=== PATIENT | female | born 1985 | race Caucasian/White ===

== ENCOUNTER → 2020-07-27 | Outpatient (CLI) | payer BC ==
[~2020-07-27] MED LIST: CHOL100046 PO; LABE100T5 PO; PREN-118 PO
[2020-07-27 13:35] LABS: BASOPHILS % 0.2 % (0.0-2.0); EOSINOPHILS % 0.3 % (0.0-5.0); HEMATOCRIT. 33.2 % (36.0-48.0); HEMOGLOBIN. 11.2 g/dL (12.0-16.0); LYMPHOCYTES % 23.3 % (20.0-50.0); MEAN CORPUSCULAR HEMOGLOBIN 30.9 pg (28.0-32.0); MEAN CORPUSCULAR VOLUME 91.5 fL (81.0-99.0); MEAN PLATELET VOLUME 8.1 fl (7.4-10.4); MONOCYTES % 5.7 % (2.0-8.0); NEUTROPHILS % 70.5 % (40.0-76.0); PLATELET 304 x1000/uL (130-400); RED BLOOD CELL COUNT 3.62 mill/uL (4.2-5.4); RED CELL DISTRIBUTION WIDTH 13.5 % (11.6-14.6)
[2020-07-27 13:39] LABS: CHLORIDE 106 mEq/L (98-107); INR 0.9; PARTIAL THROMBOPLASTIN TIME 25.3 sec (23.4-31.0); PROTHROMBIN TIME 10.2 sec (9.6-11.0)
[2020-07-27 13:58] LABS: T4 FREE 1.03 ng/dL (0.76-1.46)
== END | disposition home or self-care (01) ==
LOC: LAB 12:32
PROVIDERS: ATTEND Obstetrics & Gynecology Obstetrics
DX: Z01.812 Encounter for preprocedural laboratory examination (principal)
CPT/HCPCS: 36415; 80053; 83036; 84439; 84443; 84481; 85025; 87426

== ENCOUNTER → 2020-08-23 | Outpatient (CLI) | payer BC | END | disposition home or self-care (01) | LOC: LAB 10:22 | PROVIDERS: ATTEND Obstetrics & Gynecology Obstetrics | DX: Z13.1 Encounter for screening for diabetes mellitus (principal) | CPT/HCPCS: 36415; 82947; 82950 ==

== ENCOUNTER 2020-10-19 21:17 | Observation (INO) | payer BC ==
[~2020-10-19] VITALS: Ht 160 cm; Wt 94.8 kg
== END 2020-10-19 23:10 | disposition home or self-care (01) ==
LOC: 8 EST LDRP 21:17
PROVIDERS: ADMIT Obstetrics & Gynecology Obstetrics; ATTEND Obstetrics & Gynecology Obstetrics
DX: O26.893 Other specified pregnancy related conditions, third trimester (principal); R10.9 Unspecified abdominal pain; Z3A.32 32 weeks gestation of pregnancy
CPT/HCPCS: G0378

== ENCOUNTER 2020-11-29 08:28 | Inpatient (IN) | payer BC ==
[~2020-11-29] VITALS: Ht 160 cm; Wt 98.4 kg
[2020-11-29] MEDS ORDERED: DEXT 5%/LR + PITOCIN 20UNITS/L 1,000 ML IV ONE (09:21)
[2020-11-29] MEDS ORDERED: BUTORPHANOL TARTRATE 2 MG/ML VIAL IV PRN (09:30)
[2020-11-29] MEDS ORDERED: LIDOCAINE HCL 1% 20ML VIAL (Pyxis) INJ INFIL SCH (09:30)
[2020-11-29] MEDS ORDERED: AMPICILLIN 2GM in NS 100ML 100 ML IV SCH (09:30)
[2020-11-29] MEDS ORDERED: LACTATED RINGERS 1,000 ML IV SCH ×2 (09:30→17:30)
[2020-11-29] MEDS ORDERED: DEXT 5%/LR + PITOCIN 20UNITS/L 1,000 ML IV SCH ×2 (09:30→13:00)
[2020-11-29] MEDS ORDERED: MINERAL OIL 30ML BOTTLE PO NR (09:45)
[2020-11-29 09:48] LABS: BASOPHILS % 0.2 % (0.0-2.0); EOSINOPHILS % 0.2 % (0.0-5.0); HEMATOCRIT. 36.6 % (36.0-48.0); HEMOGLOBIN. 12.1 g/dL (12.0-16.0); LYMPHOCYTES % 20.4 % (20.0-50.0); MEAN CORPUSCULAR HEMOGLOBIN 30.9 pg (28.0-32.0); MEAN CORPUSCULAR VOLUME 93.6 fL (81.0-99.0); MEAN PLATELET VOLUME 8.6 fl (7.4-10.4); MONOCYTES % 5.3 % (2.0-8.0); NEUTROPHILS % 73.9 % (40.0-76.0); PLATELET 248 x1000/uL (130-400); RED BLOOD CELL COUNT 3.91 mill/uL (4.2-5.4); RED CELL DISTRIBUTION WIDTH 16.3 % (11.6-14.6)
[2020-11-29 09:50] LABS: CLARITY URINE CLEAR (CLEAR); COLOR URINE YELLOW (YELLOW); KETONES URINE TRACE (NEGATIVE); LEUKOCYTE ESTERASE URINE NEGATIVE (NEGATIVE); NITRITE URINE NEGATIVE (NEGATIVE); OCCULT BLOOD URINE 1+ (NEGATIVE); PROTEIN URINE NEGATIVE (NEGATIVE); SPECIFIC GRAVITY URINE 1.015 (1.005-1.030)
[2020-11-29 09:53] LABS: CHLORIDE 113 mEq/L (98-107)
[2020-11-29 10:01] LABS: INR 0.9; PARTIAL THROMBOPLASTIN TIME 27.3 sec (23.4-31.0); PROTHROMBIN TIME 9.9 sec (9.6-11.0)
[2020-11-29 10:23] LABS: *BARBITURATES SCREEN URINE NEGATIVE (NEGATIVE); PHENCYCLIDINE URINE SCREEN NEGATIVE (NEGATIVE)
[2020-11-29 10:24] LABS: *AMPHETAMINES SCREEN URINE NEGATIVE (NEGATIVE); *BENZODIAZEPINES SCREEN URINE NEGATIVE (NEGATIVE); *COCAINE SCREEN URINE NEGATIVE (NEGATIVE); CANNABINOID URINE SCREEN NEGATIVE (NEGATIVE); METHADONE URINE SCREEN NEGATIVE (NEGATIVE); OPIATES URINE SCREEN NEGATIVE (NEGATIVE)
[2020-11-29 11:45] LABS: HEPATITIS B SURFACE ANTIGEN NEGATIVE
[2020-11-29 13:00] VITALS: BP 107/64
[2020-11-29] MEDS ORDERED: LANOLIN OINT 7GM TUBE TOP PRN (13:00)
[2020-11-29] MEDS ORDERED: BENZOCAINE/LANOLIN/ALOE VERA SPRAY TOP PRN (13:00)
[2020-11-29] MEDS ORDERED: HEMORRHOIDAL SUPP PR PRN (13:00)
[2020-11-29] MEDS ORDERED: IBUPROFEN 400MG TABLET PO PRN (13:00)
[2020-11-29] MEDS ORDERED: RHO(D) IMMUNE GLOBULIN 300 MCG/SYR IM PRN (13:00)
[2020-11-29] MEDS ORDERED: DIPHENHYDRAMINE 25MG CAPSULE PO PRN (13:00)
[2020-11-29] MEDS ORDERED: GLYCERIN/WITCH HAZEL LEAF MEDICATED PAD TOP PRN (13:00)
[2020-11-29] MEDS ORDERED: ACETAMINOPHEN 500MG TABLET PO PRN (13:45)
[2020-11-29] MEDS ORDERED: ACETAMINOPHEN WITH CODEINE 300/30MG TABLET PO PRN (13:45)
[2020-11-29] MEDS: IBUPROFEN 800MG TABLET PO PRN ×2 (15:08→21:29)
[2020-11-29 17:34] VITALS: BP 98/60
[2020-11-29 19:30] VITALS: BP 105/58
[2020-11-29] MEDS ORDERED: LABETALOL HCL 200MG TABLET PO SCH (21:00)
[2020-11-29] MEDS: DOCUSATE SODIUM 100MG CAPSULE PO SCH (21:25)
[2020-11-30 04:30] VITALS: BP 96/55
[2020-11-30 07:30] VITALS: BP 102/56
[2020-11-30 07:33] LABS: HEMATOCRIT 31.6 % (36.0-48.0); HEMOGLOBIN 10.5 g/dL (12.0-16.0)
[2020-11-30] MEDS: PRENATAL VIT/FE FUMARATE/FA TABLET PO SCH (09:37)
[2020-11-30] MEDS: IBUPROFEN 800MG TABLET PO PRN ×2 (11:30→20:49)
[2020-11-30 16:27] VITALS: BP 106/58
[2020-11-30] MEDS ORDERED: TETANUS, DIPHTHERIA, PERTUSSIS VAC/PF 0.5ML (>7YR OLD) IM ONE (18:00)
[2020-11-30] MEDS: DOCUSATE SODIUM 100MG CAPSULE PO SCH (20:50)
[2020-11-30 21:50] VITALS: BP 111/74
[2020-12-01 06:39] VITALS: BP 106/64
[2020-12-01 08:00] VITALS: BP 120/75
[2020-12-01] MEDS: PRENATAL VIT/FE FUMARATE/FA TABLET PO SCH (08:56)
[2020-12-01] MEDS: IBUPROFEN 800MG TABLET PO PRN (08:57)
== END 2020-12-01 12:30 | disposition home or self-care (01) | DRG 807 ==
LOC: 8 EST LDRP 08:28 → OBSVTOIN 08:28 → 8EST 12:48
PROVIDERS: ADMIT Obstetrics & Gynecology Obstetrics; ATTEND Obstetrics & Gynecology Obstetrics
PROC: 10E0XZZ Delivery of Products of Conception, External Approach (ICD-10-PCS; principal; 2020-11-29)
PROC: 0KQM0ZZ Repair Perineum Muscle, Open Approach (ICD-10-PCS; 2020-11-29)
PROC: 10907ZC Drainage of Amniotic Fluid, Therapeutic from Products of Conception, Via Natural or Artificial Opening (ICD-10-PCS; 2020-11-29)
DX: O16.4 Unspecified maternal hypertension, complicating childbirth (principal); Z37.0 Single live birth; O70.1 Second degree perineal laceration during delivery; Z3A.38 38 weeks gestation of pregnancy
CPT/HCPCS: 36415; 80053; 80305; 81003; 84550; 85014; 85018; 85025; 85384; 86592; 86703; 86762; 86850; 86900; 87340; 90715; 99281; J0290; J0595; J2590; J7120

== ENCOUNTER → 2020-12-05 | Outpatient (CLI) | payer BC ==
[2020-12-05 12:43] LABS: BASOPHILS % 0.3 % (0.0-2.0); EOSINOPHILS % 0.8 % (0.0-5.0); HEMATOCRIT. 33.3 % (36.0-48.0); HEMOGLOBIN. 11.2 g/dL (12.0-16.0); LYMPHOCYTES % 24.8 % (20.0-50.0); MEAN CORPUSCULAR HEMOGLOBIN 30.6 pg (28.0-32.0); MEAN CORPUSCULAR VOLUME 90.7 fL (81.0-99.0); MONOCYTES % 8.1 % (2.0-8.0); PLATELET 318 x1000/uL (130-400); RED BLOOD CELL COUNT 3.67 mill/uL (4.2-5.4); RED CELL DISTRIBUTION WIDTH 15.6 % (11.6-14.6)
[2020-12-05 12:47] LABS: CLARITY URINE CLEAR (CLEAR); COLOR URINE YELLOW (YELLOW); KETONES URINE NEGATIVE (NEGATIVE); LEUKOCYTE ESTERASE URINE 2+ (NEGATIVE); NITRITE URINE NEGATIVE (NEGATIVE); OCCULT BLOOD URINE 3+ (NEGATIVE); PROTEIN URINE NEGATIVE (NEGATIVE); SPECIFIC GRAVITY URINE 1.009 (1.005-1.030)
[2020-12-05 13:06] LABS: D-DIMER 2.72 mg/L FEU (<0.50); PARTIAL THROMBOPLASTIN TIME 27.4 sec (23.4-31.0); PROTHROMBIN TIME 10.3 sec (9.6-11.0)
[2020-12-05 13:20] LABS: CHLORIDE 113 mEq/L (98-107)
[2020-12-06 07:12] LABS: *CREATININE RANDOM URINE 34.4 mg/dL (Not Estab.); MICROALBUMIN RANDOM URINE 14.2 ug/mL (Not Estab.)
== END | disposition home or self-care (01) ==
LOC: LAB 11:15
PROVIDERS: ATTEND Obstetrics & Gynecology Obstetrics
DX: N39.0 Urinary tract infection, site not specified (principal); I10 Essential (primary) hypertension; R42 Dizziness and giddiness; R51.9 Headache, unspecified; D68.9 Coagulation defect, unspecified; O24.419 Gestational diabetes mellitus in pregnancy, unspecified control
CPT/HCPCS: 36415; 80053; 80076; 81003; 82043; 82248; 82570; 83036; 85025; 85379; 85384

== ENCOUNTER → 2023-06-11 | Outpatient (CLI) | payer BC | END | disposition home or self-care (01) | LOC: US 13:01 | PROVIDERS: ATTEND Obstetrics & Gynecology Obstetrics | DX: Z97.5 Presence of (intrauterine) contraceptive device (principal) | CPT/HCPCS: 76830; 76856 ==

== ENCOUNTER → 2023-07-01 | Outpatient (CLI) | payer BC ==
[2023-07-01 12:03] LABS: CLARITY URINE CLEAR (CLEAR); COLOR URINE YELLOW (YELLOW); GLUCOSE URINE NEGATIVE (NEGATIVE); KETONES URINE NEGATIVE (NEGATIVE); LEUKOCYTE ESTERASE URINE TRACE (NEGATIVE); NITRITE URINE NEGATIVE (NEGATIVE); OCCULT BLOOD URINE TRACE (NEGATIVE); PH URINE 6.5 (4.5-8.0); PROTEIN URINE NEGATIVE (NEGATIVE); SPECIFIC GRAVITY URINE 1.011 (1.005-1.030); UROBILINOGEN URINE 0.2 E.U./dL (0.2-1.0)
[2023-07-01 12:07] LABS: BASOPHILS % 0.4 % (0.0-2.0); EOSINOPHILS % 0.6 % (0.0-5.0); HEMATOCRIT. 39.7 % (36.0-48.0); HEMOGLOBIN. 13.3 g/dL (12.0-16.0); MEAN CORPUSCULAR HEMOGLOBIN 30.2 pg (28.0-32.0); MEAN CORPUSCULAR HGB CONC 33.6 g/dL (31.0-37.0); MEAN CORPUSCULAR VOLUME 90.1 fL (81.0-99.0); MEAN PLATELET VOLUME 8.6 fl (7.4-10.4); MONOCYTES % 5.7 % (2.0-8.0); NEUTROPHILS % 63.3 % (40.0-76.0); PLATELET 324 x1000/uL (130-400); RED BLOOD CELL COUNT 4.41 mill/uL (4.2-5.4); RED CELL DISTRIBUTION WIDTH 13.5 % (11.6-14.6); WHITE BLOOD COUNT 8.9 x1000/uL (4.5-11.0)
[2023-07-01 12:14] LABS: BACTERIA URINE TRACE; RBC URINE 0-2 /hpf (0-2); SQUAMOUS EPITHELIAL CELL URINE 2+ /lpf (RARE/1+); YEAST URINE NONE SEEN
[2023-07-01 12:17] LABS: ALANINE AMINOTRANSFERASE 29 IU/L (10-49); ALBUMIN 4.8 g/dL (3.2-4.8); ASPARTATE AMINOTRANSFERASE 25 IU/L (<34); BILIRUBIN TOTAL 0.5 mg/dL (0.1-1.0); CARBON DIOXIDE 23 mEq/L (21-32); CHLORIDE 106 mEq/L (98-107); CHOLESTEROL 171 mg/dL (<200); CREATININE 0.5 mg/dL (0.6-1.0); FERRITIN 35 ng/mL (10-291); GLUCOSE 94 mg/dL (70-105); HDL CHOLESTEROL 44 mg/dL (>65); IRON 67 ug/dL (50-170); LDL CHOLESTEROL 121 mg/dL (5-100); PROTEIN TOTAL 7.6 g/dL (6.0-8.3); SODIUM 135 mEq/L (136-145); THYROID STIMULATING HORMONE 2.53 uIU/mL (0.55-4.78); TOTAL IRON BINDING CAPACITY 328 ug/dl (250-425); TRIGLYCERIDE 85 mg/dL (0-150); UREA NITROGEN BLOOD 12 mg/dL (9-23); VITAMIN B12 SERUM 393 pg/mL (211-911)
[2023-07-01 15:00] LABS: FOLIC ACID (FOLATE) SERUM > 20.00 ng/mL (>5.38)
== END | disposition home or self-care (01) ==
LOC: LAB 11:16
DX: Z00.01 Encounter for general adult medical examination with abnormal findings (principal); N39.0 Urinary tract infection, site not specified
CPT/HCPCS: 36415; 80053; 80061; 81003; 82306; 82607; 82728; 82746; 83036; 83540; 83550; 84443; 85025; 86592

== ENCOUNTER → 2024-01-28 | Outpatient (CLI) | payer BC ==
[2024-01-28 12:40] LABS: CHLORIDE 107 mEq/L (98-107); SODIUM 137 mEq/L (136-145)
[2024-01-28 12:41] LABS: CALCIUM 9.6 mg/dL (8.7-10.4); CARBON DIOXIDE 24 mEq/L (21-32)
[2024-01-28 12:46] LABS: CREATININE 0.6 mg/dL (0.6-1.0); GLUCOSE 89 mg/dL (70-105); TRIGLYCERIDE 82 mg/dL (0-150); UREA NITROGEN BLOOD 13 mg/dL (9-23)
[2024-01-28 12:47] LABS: LDL CHOLESTEROL 129 mg/dL (5-100)
[2024-01-28 12:48] LABS: ALANINE AMINOTRANSFERASE 32 IU/L (10-49); ALBUMIN 4.7 g/dL (3.2-4.8); ASPARTATE AMINOTRANSFERASE 26 IU/L (<34); BILIRUBIN TOTAL 0.7 mg/dL (0.1-1.0); CHOLESTEROL 160 mg/dL (<200); HDL CHOLESTEROL 37 mg/dL (>65); PROTEIN TOTAL 8.2 g/dL (6.0-8.3)
== END | disposition home or self-care (01) ==
LOC: LAB 12:01
PROVIDERS: ATTEND Internal Medicine Geriatric Medicine
DX: I10 Essential (primary) hypertension (principal); E78.5 Hyperlipidemia, unspecified
CPT/HCPCS: 36415; 80053; 80061; 82306; 83036